=== PATIENT | male | born 1960 | race Caucasian/White ===

== ENCOUNTER 2024-10-01 15:18 | Observation (INO) | payer OTHER, SELFPAY ==
[2024-10-01] VITALS (16 sets, daily range): BP systolic 114–148; BP diastolic 58–97; PULSE 57–85; RESP 10–26; TEMP 36.1–36.7; O2SAT 97–100
--- NOTE | ~2024-10-01 | CT_ITS ---
EXAMINATION: CTA chest PE protocol DATE: 10/01/2024 17:07 INDICATION: CP, dyspnea, tachypnea, rule out PE TECHNIQUE: Computed tomography angiography (CTA) of the chest was performed with 100 mL Omnipaque-350 intravenous contrast timed to evaluate the pulmonary arteries. Coronal maximum intensity projection 3D-reconstructions were created by the technologist. The dose-length product (DLP) was 166.59 mGy-cm. Automated exposure control and iterative reconstruction technique were employed. COMPARISON: X-ray chest, same date. FINDINGS: Lung parenchyma and airways: Clear. Pleura: Unremarkable. Thoracic inlet, axillae and chest wall: Unremarkable. Thoracic aorta: No significant dilation. No dissection. Mediastinum: Normal. Heart and pericardium: Normal. Coronary artery calcifications: . Upper abdomen: No significant finding. Bones: No acute osseous finding. Pulmonary arteries: Study quality: Adequate. No pulmonary emboli detected. IMPRESSION: No CT evidence of acute pulmonary embolus. No acute process detected in the chest. Reviewed, dictated and finalized at location K. MILITARY ANALYST
--- NOTE | ~2024-10-01 | XR_ITS ---
EXAMINATION: XR chest 1V portable Exam Date/Time: 10/01/2024 15:53 BLACK BELT HISTORY: chest pain Comparison: None. RESULT: Lines, tubes, and devices: None. Lungs and pleura: Hyperinflation, otherwise clear. Cardiomediastinal silhouette: Stable. Other: No acute osseous or upper abdominal finding. IMPRESSION: No acute cardiopulmonary process. Reviewed, dictated and finalized at location K. K BELT
--- NOTE | 2024-10-01 15:29 | ECG_ITS ---
Test Date: 2024-10-01 15:33:12 Measurements Intervals [place] Rate: 67 P: 23 FL: 197 QRS: -47 QRSD: 89 T: 213 QT: 407 QTc: 432 Interpretive Statements SINUS RHYTHM LEFT AXIS DEVIATION ANTEROSEPTAL INFARCT, AGE INDETERMINATE ST-T WAVE ABNORMALITY IN DIFFUSE LEADS- CONSIDER ISCHEMIA BASELINE ARTIFACT- II, III, AVR, AVL, AVF ABNORMAL ECG No previous ECG available for comparison Electronically Signed On 10-01-2024 18:50:41 MAIL ROOM CLERK by Rl Mccullough D.O.
--- NOTE | 2024-10-01 15:47 | ED_ITS ---
HPI - Chest Pain General Chief Complaint: Chest Pain Stated Complaint: CP Time Seen by Provider: 10/01/24 15:47 Source: patient Mode of arrival: EMS Limitations: no limitations History of Present Illness HPI narrative: this is a 63-year-old male who presents to the ED via EMS from local shelter for chief complaint of chest pain and shortness of breath beginning 1 hour prior to arrival. Reports that he had twinge of chest pain that began last night but was short lived. States that the chest pain is currently in the central chest and does not radiate. Not necessarily associated with exertion or deep breathing. He does feel short of breath. States that he was just discharged from the hospital in [place] and told he had CHF. Reports that they started him on a CHF medication but cannot tell me his medications. Denies leg swelling, palpitations, back pain, syncope, nausea, vomiting, diarrhea, abdominal pain, fevers, chills, cough. Endorses smoking a pack per day since he was around age 11. Related Data Home Medications Medication Instructions Recorded Confirmed bumetanide 0.5 mg tablet 0.5 mg PO BID 10/01/24 10/01/24 empagliflozin 10 mg tablet 10 mg PO DAILY 10/01/24 10/01/24 (Jardiance) metoprolol tartrate 25 mg tablet 12.5 mg PO BID 10/01/24 10/01/24 sacubitril 24 mg-valsartan 26 mg 1 tablet PO BID 10/01/24 10/01/24 tablet (Entresto) sertraline 50 mg tablet 50 mg PO DAILY 10/01/24 10/01/24 spironolactone 25 mg tablet 12.5 mg PO DAILY 10/01/24 10/01/24 (Aldactone) Allergies Allergy/AdvReac Type Severity Reaction Status Date / Time codeine Allergy Unknown Verified 10/01/24 22:28 diclofenac [From Voltaren] Allergy Unknown Verified 10/01/24 22:28 ketorolac Allergy Unknown Verified 10/01/24 22:28 levofloxacin Allergy Unknown Verified 10/01/24 22:28 Czgzwej-LQT-CwB Reductase Allergy Unknown Verified 10/01/24 22:28 Inhibitor tramadol Allergy Unknown Verified 10/01/24 22:28 Review of Systems Review of Systems: All systems as dictated in HPI [facility] Family History Family History (Updated 10/01/24 @ 22:59 by Genna Gatica RN) Other Unknown family medical history Social History Social History Smoking status: Unknown if ever smoked Substance use type: marijuana Do You Feel Safe in your Home?: No Lack of Transportation: YES Lack of Food: Never True Current Housing: I Have Housing Concerned About Future Housing: No Difficulty Paying Gas/Electric Bills: No Difficulty Paying for Meds: No Currently Unemployed: No Education: Grade School Difficulty w/ Childcare or Family Care: No Spiritual care concerns: No Exam Narrative: GENERAL: Well-appearing, well-nourished, and in no acute distress. HEAD: Normocephalic, atraumatic. EYES: PERRLA and EOMI. ENT: Nares clear, no rhinorrhea or epistaxis. Mucous membranes moist. Oropharynx without tonsillar hypertrophy exudate or other lesions. NECK: Supple. No adenopathy or masses. CHEST: No respiratory distress. Clear to auscultation. No wheezes rales or rhonchi HEART: Regular rate and rhythm. No murmur heard. Normal peripheral pulses. ABDOMEN: Soft, nontender, nondistended, normal active bowel sounds. MSK: Normal range of motion. No edema. SKIN: Warm, dry, no rash. NEURO: Alert and oriented x4. No focal deficits. PSYCH: Normal mood and affect. Course Vital Signs Vital signs: Vital Signs Temperature 97.0 F L 10/01/24 15:26 Pulse Rate 70 10/01/24 15:26 Respiratory Rate 24 H 10/01/24 15:26 Blood Pressure 125/79 10/01/24 15:26 Pulse Oximetry 100 10/01/24 15:26 Oxygen Delivery Room Air 10/01/24 15:26 Temperature 97.0 F L 10/01/24 15:26 Pulse Rate 73 10/01/24 23:21 Respiratory Rate 10 L 10/01/24 22:00 Blood Pressure 145/97 H 10/01/24 22:00 Pulse Oximetry 98 10/01/24 22:00 Oxygen Delivery Room Air 10/01/24 20:03 MDM - Chest Pain MDM Narrative Medical decision making narrative: This is a 63-year-old male who presents to the ED for chief complaint of chest pain beginning just prior to arrival. Vitals show initial slightly tachypneic but otherwise normal. Physical exam is unremarkable. ECG is concerning for T- wave inversions throughout the inferior and lateral leads. There are deep Q- waves in the anterior leads. Lab work shows elevated BNP at 2470. Troponins at 0 and 3 hours are negative. BUN slightly elevated at 36. His is CBC unremarkable Chest x-ray and CTA chest are negative for any acute findings. Patient is still having chest pain on re-evaluation despite morphine. Tried dose of sublingual nitro with no effect. He is requesting to be admitted for chest pain evaluation. Discussed this plan with the hospitalist ELEVATOR REPAIRER HELPERShari who [facility] Ad[facility] in [facility] condition Differential Diagnosis Differential diagnosis: Likely fracture of rib, pneumothorax, stable angina, unstable angina pectoris, atypical chest pain, st elevation myocardial infarction, costochondritis and chest pain Lab Data 10/01/24 16:17 10/01/24 16:17 Labs: Lab Results 10/01/24 10/01/24 10/01/24 Range/Units 16:17 16:17 16:52 WBC 8.7 (4.5-10.0) K/mm3 RBC 5.33 (4.6-6.20) M/mm3 Hgb 16.2 (14.0-18.0) g/dL Hct 49.3 (42.0-52.0) % MCV 92.5 (80-100) fl MCH 30.4 (26-34) pg MCHC 32.9 (32-36) g/dl RDW 12.4 (11.5-14.5) % Plt Count 271 (150-375) k/mm3 MPV 10.7 H (7.4-10.4) fl Immature Gran % (Auto) 0.2 (0-0.5) % Neut % (Auto) 40.6 L (45.5-73.1) % Lymph % (Auto) 42.7 (18.3-44.2) % [place] % (Auto) 7.5 (2.6-8.5) % Eos % (Auto) 7.8 H (0-4.4) % Baso % (Auto) 1.2 (0.2-1.2) % Lymph # (Auto) 3.71 H (0.9-3.2) K/mm3 [place] # (Auto) 0.7 H (0.1-0.6) K/mm3 Eos # (Auto) 0.7 H (0-0.3) K/mm3 Baso # (Auto) 0.1 (0.0-0.1) K/mm3 Abs Immat Gran (auto) 0.02 (0.00-0.031) K/mm3 Absolute Neuts (auto) 3.5 (1.3-6.7) K/mm3 Absolute Nucleated RBC 0.000 (0.0-0.012) K/mm3 Nucleated RBC % 0.0 (0.0-0.2) % PT 12.7 (11.1-14.7) Seconds INR 0.9 APTT 26.7 (22.3-36.8) Seconds Sodium 136 L (137-145) mmol/L Potassium 4.8 (3.4-5.0) mmol/L Chloride 100 (98-107) mmol/L Carbon Dioxide 29 (22-30) mmol/L Anion Gap 7 (4-12) mmol/L BUN 36 H (9-20) mg/dL Creatinine 1.30 (0.7-1.3) mg/dL Estim Creat Clear Calc 34 ml/min Estimated GFR 56 L (59 - ) Glucose 85 (65-110) mg/dL Calcium 9.4 (8.4-10.2) mg/dL Total Bilirubin 0.3 (0.2-1.3) mg/dL AST 60 H (17-59) U/L ALT 68 H (6-50) U/L Alkaline Phosphatase 89 (38-126) U/L Troponin I < 0.012 Cancelled (0.000-0.034) ng/mL NT-Pro-B Natriuret Pep 2470 H (19.9-100) pg/mL Total Protein 8.0 (6.3-8.2) g/dL Albumin 4.3 (3.5-5.1) g/dL Lipase 102 (23-300) U/L Urine Color Yellow (Yellow) Urine Appearance Clear (Clear) Urine pH 6.5 (5.0-9.0) Ur Specific [place] 1.022 (1.001-1.035) Urine Protein Negative (Negative) mg/dL Urine Glucose (UA) Negative (Negative) mg/dL Urine Ketones Negative (Negative) mg/dL Ur Blood (Man) Negative (Negative) Urine Nitrate Negative (Negative) Urine Bilirubin Negative (Negative) Urine Urobilinogen 0.2 (<2.0) mg/dL Leukocyte Esterase Rfl Negative (Negative) YUMIKO/UL 10/01/24 Range/Units 19:13 WBC (4.5-10.0) K/mm3 RBC (4.6-6.20) M/mm3 Hgb (14.0-18.0) g/dL Hct (42.0-52.0) % MCV (80-100) fl MCH (26-34) pg MCHC (32-36) g/dl RDW (11.5-14.5) % Plt Count (150-375) k/mm3 MPV (7.4-10.4) fl Immature Gran % (Auto) (0-0.5) % Neut % (Auto) (45.5-73.1) % Lymph % (Auto) (18.3-44.2) % [place] % (Auto) (2.6-8.5) % Eos % (Auto) (0-4.4) % Baso % (Auto) (0.2-1.2) % Lymph # (Auto) (0.9-3.2) K/mm3 [place] # (Auto) (0.1-0.6) K/mm3 Eos # (Auto) (0-0.3) K/mm3 Baso # (Auto) (0.0-0.1) K/mm3 Abs Immat Gran (auto) (0.00-0.031) K/mm3 Absolute Neuts (auto) (1.3-6.7) K/mm3 Absolute Nucleated RBC (0.0-0.012) K/mm3 Nucleated RBC % (0.0-0.2) % PT (11.1-14.7) Seconds INR APTT (22.3-36.8) Seconds Sodium (137-145) mmol/L Potassium (3.4-5.0) mmol/L Chloride (98-107) mmol/L Carbon Dioxide (22-30) mmol/L Anion Gap (4-12) mmol/L BUN (9-20) mg/dL Creatinine (0.7-1.3) mg/dL Estim Creat Clear Calc ml/min Estimated GFR (59 - ) Glucose (65-110) mg/dL Calcium (8.4-10.2) mg/dL Total Bilirubin (0.2-1.3) mg/dL AST (17-59) U/L ALT (6-50) U/L Alkaline Phosphatase (38-126) U/L Troponin I < 0.012 (0.000-0.034) ng/mL NT-Pro-B Natriuret Pep (19.9-100) pg/mL Total Protein (6.3-8.2) g/dL Albumin (3.5-5.1) g/dL Lipase (23-300) U/L Urine Color (Yellow) Urine Appearance (Clear) Urine pH (5.0-9.0) Ur Specific [place] (1.001-1.035) Urine Protein (Negative) mg/dL Urine Glucose (UA) (Negative) mg/dL Urine Ketones (Negative) mg/dL Ur Blood (Man) (Negative) Urine Nitrate (Negative) Urine Bilirubin (Negative) Urine Urobilinogen (<2.0) mg/dL Leukocyte Esterase Rfl (Negative) YUMIKO/UL ECG Data EKG #1: ECG completion date: 10/01/24 ECG completion time: 15:58 Prior ECG tracings: not available for review Interpretation: sinus rhythm Rate 67 LAD Normal QRS Nonspecific ST and T-wave changes including T-wave inversions in the lateral and inferior leads Discharge Plan Discharge Clinical Impression: Chest pain Patient Disposition: Still a Patient Condition: Stable Quality HEART score for chest pain patients History: moderately suspicious ECG: non specific repolarization disturbance/LBTB/PM Age: > 45 and < 65 years Risk factors: 1 or 2 risk factors Troponin: < or = to 1x normal limit Heart score: 4
[2024-10-01] MEDS: MORPHINE SULFATE (*CRX) 4 MG/ML INJ IV PUSH (16:16)
[2024-10-01] MEDS: ASPIRIN 81 MG CHEWABLE TABLET 324 MG PO (16:16)
[2024-10-01] MEDS: ONDANSETRON INJ 4 MG/2 ML VIAL IV PUSH (16:16)
[2024-10-01 16:24] LABS: Basophils Absolute Auto 0.1 K/mm3 (0.0-0.1); Basophils Percent Auto 1.2 % (0.2-1.2); Eosinophils Absolute Auto 0.7 K/mm3 (0-0.3); Eosinophils Percent Auto 7.8 % (0-4.4); Hematocrit 49.3 % (42.0-52.0); Hemoglobin 16.2 g/dL (14.0-18.0); Immature Granulocyte Absolute 0.02 K/mm3 (0.00-0.031); Immature Granulocyte Percent A 0.2 % (0-0.5); Lymphocytes Absolute Auto 3.71 K/mm3 (0.9-3.2); Lymphocytes Percent Auto 42.7 % (18.3-44.2); Mean Corpuscular HGB Conc 32.9 g/dl (32-36); Mean Corpuscular Hemoglobin 30.4 pg (26-34); Mean Corpuscular Volume 92.5 fl (80-100); Mean Platelet Volume 10.7 fl (7.4-10.4); Monocytes Absolute Auto 0.7 K/mm3 (0.1-0.6); Monocytes Percent Auto 7.5 % (2.6-8.5); Neutrophils Absolute Auto 3.5 K/mm3 (1.3-6.7); Neutrophils Percent Auto 40.6 % (45.5-73.1); Platelet Count Result 271 k/mm3 (150-375); Red Blood Count 5.33 M/mm3 (4.6-6.20); Red Cell Distribution Width 12.4 % (11.5-14.5); White Blood Count 8.7 K/mm3 (4.5-10.0)
[2024-10-01 16:44] LABS: Alanine Aminotransferase 68 U/L (6-50); Albumin Level 4.3 g/dL (3.5-5.1); Alkaline Phosphatase 89 U/L (38-126); Anion Gap 7 mmol/L (4-12); Aspartate Amino Transferase 60 U/L (17-59); Bilirubin,Total 0.3 mg/dL (0.2-1.3); Blood Urea Nitrogen 36 mg/dL (9-20); Calcium 9.4 mg/dL (8.4-10.2); Carbon Dioxide 29 mmol/L (22-30); Chloride 100 mmol/L (98-107); Estimated CRCL calculation 34 ml/min; Estimated Glomerular Filt Rate 56; Glucose 85 mg/dL (65-110); Lipase 102 U/L (23-300); Potassium 4.8 mmol/L (3.4-5.0); Sodium 136 mmol/L (137-145)
[2024-10-01 16:51] LABS: NT Pro B Type Natriuretic Pept 2470 pg/mL (19.9-100)
[2024-10-01 17:11] LABS: INR 0.9; Prothrombin Time 12.7 Seconds (11.1-14.7)
[2024-10-01 17:12] LABS: Partial Thromboplastin Time 26.7 Seconds (22.3-36.8)
[2024-10-01 17:30] LABS: Add Urine Microscopic? NO; Appearance Urine Clear (Clear); Bilirubin Urine Negative (Negative); Blood Urine Negative (Negative); Color Urine Yellow (Yellow); Glucose Urine UA Negative (Negative); Ketones Urine Negative (Negative); Leukocyte Esterase Ur Negative LEU/UL (Negative); Nitrate Urine Negative (Negative); Protein Urine Negative (Negative); Specific Grav Ur 1.022 (1.001-1.035); Urobilinogen Urine 0.2 mg/dL (<2.0); pH Urine 6.5 (5.0-9.0)
[2024-10-01 17:43] LABS: Troponin I < 0.012 ng/mL (0.000-0.034)
[2024-10-01 19:59] LABS: Troponin I < 0.012 ng/mL (0.000-0.034)
[2024-10-01] MEDS: NITROGLYCERIN SL 0.4 MG TABLET SUBLINGUAL (20:19)
--- NOTE | 2024-10-01 23:03 | PC.NURSE ---
Patient unable to answer questions r/t health history; RN asked patient about PMH and patient stated I don't really know , I don't think so ; and maybe, I don't really know . Health history and medication list obtained from senior care records; Report provided to YRIS Larsen.
--- NOTE | 2024-10-01 23:17 | ADMGEN ---
This patient, James Olson, was admitted to Medical Room 257-01. Patient/family oriented to hospital policies and general routines including ID bracelet, bed and alarms, visiting hours, pain management, procedures, bathroom and other care routines, personal items, smoking policy, room service/diet, and visiting hours. Information on how to activate the Rapid Response Team has been discussed. Patient/Family are encouraged to report perceived risks to care and to ask questions if they do not understand what they are told or what they should do.
[2024-10-02] VITALS (10 sets, daily range): BP systolic 98–107; BP diastolic 56–74; PULSE 56–80; RESP 16–18; TEMP 36.4–36.5; O2SAT 95–97; BMI 17.4; BMI 17.3
[2024-10-02 00:37] LABS: Troponin I 0.013 ng/mL (0.000-0.034)
--- NOTE | 2024-10-02 01:35 | PM.IMHP ---
H&P: HPI History of Present Illness Date/Time: 10/02/24 01:35 Chief Complaint: Chest pain Narrative: 63-year-old male with a past medical history of learning disability, CHF, chronic kidney disease and depression who is a poor historian presented from [facility] [place] due to chest pain and shortness of breath for 1 hour. The patient had recently been hospitalized in [place] and for some reason was discharged to [facility] facility in our area. He states he does not know why he was discharged to a [facility] facility left alone a [facility]ci facility so far from home. He states that he has had several hospital stays recently and was told that he had heart failure. He reports intermittent dyspnea most notably dyspnea on exertion. He reports some chest tightness but not real chest pain. He denies a known history of COPD but he is a poor historian. He has smoked between 0.5 packs per day and 1.5 packs of cigarettes per day since he was a teenager. He has not had any lower extremity swelling, abdominal edema or swelling of his scrotum. He denies any palpitations. He denies any cough, congestion or wheezing. He reports that he is able to walk on his own and take care of himself. He does not want to go back to the jail. Patient was evaluated in the ER. His EKG demonstrated left bundle branch block but 2 sets of cardiac enzymes were negative. Patient initially had told ER that he is having chest pain. At the time my evaluation under more questioning the patient actually reported more of a chest tightness. And it seems as patient is actually having the tightness probably more so with activity but again patient is not the best historian. He reports that he was hospitalized at [facility]. He states that he has been our hospital for about 10 days. The patient states that his mother was an alcoholic and drink how Kelil Britton he she was with him. He states that he was in special education classes his whole life. He was not aware of the year. He states that he does not watch TV or keep track of a calendar. He initially stated that the president was rate again but corrected himself to Trump. Patient knows that he is in the hospital but is unaware of what town or the name of the jail that he was sent to. Review of Systems Review of Systems: 12 systems were reviewed with pertinent positives and negatives per HPI. Except as documented in the HPI, all other systems were reviewed and are negative. [facility] Past Medical History Medical History (Updated 10/02/24 @ 07:34 by Tsering Cervantes DO) CHF (congestive heart failure) Dyslipidemia Tobacco abuse disorder Family History Family History (Updated 10/02/24 @ 07:25 by Tsering Cervantes DO) Mother Alcoholism Social History Social History (Updated 10/02/24 @ 07:29 by Tsering Cervantes DO) Social History: He reports that he lived with his female friend until his recent hospitalization. He has smoked between 0.5 packs per day to 1.5 packs per day since he was 11 years old. He reports that he has cut down to 1-2 cigarettes a day over the last couple of years. He did drink heavily when he was in his early 20s but has not drink alcohol in numerous. He does smoke marijuana frequently. He used to deliver newspapers for a for 20 years. He states that he was for 45 years and got when he was 17. However if this was true than the patient's would of just recently but he tells me that his several years ago. He states that he has 2 daughters 1 of which was 38 in just of liver cancer recently. States he has another daughter who lives out of state but he has not talked to her in a few years. Code status: Full code Smoking packs per day: 1 Smoking cigarettes per day: 20.0 Years smoked: 50 Smoking pack-years: 50.00 Smoking status: Current every day smoker Additional smoking assessment comments: Patient started smoking around age of 11. He smoked up to 1 pack per day. Substance use type: marijuana Do You Feel Safe in your Home?: No Lack of Transportation: YES Lack of Food: Never True Current Housing: I Have Housing Concerned About Future Housing: No Difficulty Paying Gas/Electric Bills: No Difficulty Paying for Meds: No Currently Unemployed: No Education: Grade School Difficulty w/ Childcare or Family Care: No Spiritual care concerns: No Comments The patient reports that all of his siblings were 20+ years older than him. He still has 1 sister that he thinks is still alive but he is not in contact with her. Meds Home Medications and Allergies Home Medications Medication Instructions Recorded Confirmed Type bumetanide 0.5 mg tablet 0.5 mg PO BID 11/17/24 11/17/24 History empagliflozin 10 mg tablet 10 mg PO DAILY 10/01/24 10/01/24 History (Jardiance) metoprolol tartrate 25 mg tablet 12.5 mg PO BID 10/01/24 10/01/24 History sacubitril 24 mg-valsartan 26 mg 1 tablet PO BID 10/01/24 10/01/24 History tablet (Entresto) sertraline 50 mg tablet 50 mg PO DAILY 10/01/24 10/01/24 History spironolactone 25 mg tablet 12.5 mg PO DAILY 10/01/24 10/01/24 History (Aldactone) Allergies Allergy/AdvReac Type Severity Reaction Status Date / Time codeine Allergy Unknown Verified 10/01/24 22:28 diclofenac [From Voltaren] Allergy Unknown Verified 10/01/24 22:28 ketorolac Allergy Unknown Verified 10/01/24 22:28 levofloxacin Allergy Unknown Verified 10/01/24 22:28 Vzfmzvi-ZUA-AeD Reductase Allergy Unknown Verified 10/01/24 22:28 Inhibitor tramadol Allergy Unknown Verified 10/01/24 22:28 Vital Signs Vital Signs - 24 hr 10/01/24 15:26 10/01/24 15:26 10/01/24 15:27 Temperature 97.0 F L Pulse Rate 70 72 Respiratory Rate 24 H 17 Blood Pressure 125/79 125/79 Pulse Oximetry 100 100 100 Oxygen Delivery Room Air Room Air 10/01/24 16:46 10/01/24 19:00 10/01/24 19:45 Temperature Pulse Rate 76 70 76 Respiratory Rate 17 18 17 Blood Pressure 118/58 L Pulse Oximetry 100 97 99 Oxygen Delivery 10/01/24 20:03 10/01/24 20:03 10/01/24 20:03 Temperature Pulse Rate 65 57 L Respiratory Rate 12 Blood Pressure 122/69 Pulse Oximetry 100 100 Oxygen Delivery Room Air 10/01/24 20:19 10/01/24 20:23 10/01/24 21:00 Temperature Pulse Rate 63 69 72 Respiratory Rate 19 13 16 Blood Pressure 123/75 114/68 147/97 H Pulse Oximetry 99 99 100 Oxygen Delivery 10/01/24 21:15 10/01/24 21:30 10/01/24 21:46 Temperature Pulse Rate 71 64 63 Respiratory Rate 26 H 18 16 Blood Pressure 141/88 H 148/84 H 126/81 Pulse Oximetry 99 97 100 Oxygen Delivery 10/01/24 22:00 10/01/24 23:21 10/01/24 23:14 Temperature 98.1 F Pulse Rate 80 73 85 Respiratory Rate 10 L 16 Blood Pressure 145/97 H 138/69 Pulse Oximetry 98 100 Oxygen Delivery 10/01/24 23:15 10/02/24 00:00 Temperature Pulse Rate 73 80 Respiratory Rate 16 Blood Pressure Pulse Oximetry 100 Oxygen Delivery Room Air Exam Narrative: Weight 48.9 kg BMI 17.4 Const: Other: Thin body habitus, appears older than stated age, no acute distress, disheveled HENMT: Other: Head is normocephalic atraumatic, mucous membranes are tacky, edentulous in upper and lower jaw, patient does not have dentures Eyes: Other: Cataracts noted bilaterally, no conjunctival pallor, no scleral icterus Neck: Other: No JVD, supple Resp: Other: Decreased breath sounds bilaterally, no increased work of breathing Cardio: Other: Regular rate, regular rhythm, 2+ bilateral radial pedal pulses GI: Other: Soft, nontender, nondistended, concave andreia normoactive bowel sounds Skin: Other: The patient has numerous tattoos that appear like they have been done with a straight needle/amateur, he has significant redundant skin, no jaundice, no pallor Neuro: Other: Alert oriented to person, the fact that he is in the hospital, month and name of the president. . 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, no cyanosis, no mottling Psych: Other: Appropriate mood affect pleasant and cooperative, difficult to assess judgment and insight H&P: Results Labs Labs: Laboratory Tests 10/01/24 16:17 10/01/24 16:17 10/01/24 10/01/24 10/01/24 16:17 16:17 16:52 WBC 8.7 RBC 5.33 Hgb 16.2 Hct 49.3 MCV 92.5 MCH 30.4 MCHC 32.9 RDW 12.4 Plt Count 271 MPV 10.7 H Immature Gran % (Auto) 0.2 Neut % (Auto) 40.6 L Lymph % (Auto) 42.7 [place] % (Auto) 7.5 Eos % (Auto) 7.8 H Baso % (Auto) 1.2 Lymph # (Auto) 3.71 H [place] # (Auto) 0.7 H Eos # (Auto) 0.7 H Baso # (Auto) 0.1 Abs Immat Gran (auto) 0.02 Absolute Neuts (auto) 3.5 Absolute Nucleated RBC 0.000 Nucleated RBC % 0.0 PT 12.7 INR 0.9 APTT 26.7 Sodium 136 L Potassium 4.8 Chloride 100 Carbon Dioxide 29 Anion Gap 7 BUN 36 H Creatinine 1.30 Estim Creat Clear Calc 34 Estimated GFR 56 L Glucose 85 Calcium 9.4 Total Bilirubin 0.3 AST 60 H ALT 68 H Alkaline Phosphatase 89 Troponin I < 0.012 Cancelled NT-Pro-B Natriuret Pep 2470 H Total Protein 8.0 Albumin 4.3 Lipase 102 Urine Color Yellow Urine Appearance Clear Urine pH 6.5 Ur Specific [place] 1.022 Urine Protein Negative Urine Glucose (UA) Negative Urine Ketones Negative Ur Blood (Man) Negative Urine Nitrate Negative Urine Bilirubin Negative Urine Urobilinogen 0.2 Leukocyte Esterase Rfl Negative 10/01/24 10/02/24 19:13 00:03 WBC RBC Hgb Hct MCV MCH MCHC RDW Plt Count MPV Immature Gran % (Auto) Neut % (Auto) Lymph % (Auto) [place] % (Auto) Eos % (Auto) Baso % (Auto) Lymph # (Auto) [place] # (Auto) Eos # (Auto) Baso # (Auto) Abs Immat Gran (auto) Absolute Neuts (auto) Absolute Nucleated RBC Nucleated RBC % PT INR APTT Sodium Potassium Chloride Carbon Dioxide Anion Gap BUN Creatinine Estim Creat Clear Calc Estimated GFR Glucose Calcium Total Bilirubin AST ALT Alkaline Phosphatase Troponin I < 0.012 0.013 NT-Pro-B Natriuret Pep Total Protein Albumin Lipase Urine Color Urine Appearance Urine pH Ur Specific [place] Urine Protein Urine Glucose (UA) Urine Ketones Ur Blood (Man) Urine Nitrate Urine Bilirubin Urine Urobilinogen Leukocyte Esterase Rfl Impressions Chest X-Ray 10/01/24 16:02 (personally reviewed and interpreted. Agree with radiologic interpretation. IMPRESSION: No acute cardiopulmonary process. Chest CTA 10/01/24 17:11 IMPRESSION: No CT evidence of acute pulmonary embolus. No acute process detected in the chest. EKG: Personally reviewed and interpreted. Cardiology interpretation below Measurements Intervals [place] Rate: 67 P: 23 NV: 197 QRS: -47 QRSD: 89 T: 213 QT: 407 QTc: 432 Interpretive Statements SINUS RHYTHM LEFT AXIS DEVIATION ANTEROSEPTAL INFARCT, AGE INDETERMINATE ST-T WAVE ABNORMALITY IN DIFFUSE LEADS- CONSIDER ISCHEMIA BASELINE ARTIFACT- II, III, AVR, AVL, AVF ABNORMAL ECG No previous ECG available for comparison Assessment and Plan Assessment and plan (1) Chest pain: Qualifiers: Chest pain type: unspecified Qualified Code(s): R07.9 - Chest pain, unspecified Code(s): R07.9 - Chest pain, unspecified Status: Acute (2) CHF (congestive heart failure): Qualifiers: Heart failure type: right-sided Heart failure chronicity: chronic Qualified Code(s): I50.812 - Chronic right heart failure Code(s): I50.9 - Heart failure, unspecified Status: Acute Assessment and Plan: Per jail paperwork patient has right-sided heart failure (3) Tobacco abuse disorder: Code(s): Z72.0 - Tobacco use Status: Acute Plan Chest pain due to cardiac ischemia ruled out with 3 sets of troponins. Patient evidently had significant evaluation for CHF at [facility]. Patient's chest pain does not seem to be consistent with cardiac ischemia. Infected chest pain is more of a tightness ice suspected is due to patient's underlying CHF and/or COPD. If concern persists a for acute ischemia could consider stress test. But I would like to obtain records from outside hospital to evaluate what cardiac evaluation has been performed previously. CTA negative for PE or acute processes of the chest that could cause pain. Patient has history of CHF. Will change diet to 2 g low-sodium. Will continue Jardiance, metoprolol and Entresto as well as spironolactone. Will monitor strict I&O's and daily weights. Chest x-ray does appear to be somewhat hyperinflated. ? If patient may have history of underlying COPD as well given his significant smoking history although he does not have evidence of acute COPD exacerbation.. But appears otherwise euvolemic. Will monitor strict I&O's and daily weights. Patient is adamant that he is able to take care of himself at home. Will request PT and OT evaluation to assess discharge planning recommendations. Will also obtain records from the outside hospital to see if there is a specific reason mention as to why patient could not return to his prior residence. Patient has been admitted as observation status. Quality VTE Prophylaxis VTE prophylaxis: pharmacologic ordered (Lovenox 40 mg subQ daily) Hospitalist MIPS Advance Care Plan I have confirmed that the patient's Advanced Care Plan is present, code status is documented, or surrogate decision maker is listed in patient medical record.: Yes Medication Reconciliation I have utilized all available resources to obtain, update and review the patients current medications (includes all prescriptions, OTC, herbals, cannabis, and nutritional supplements).: Yes
[2024-10-02 08:02] LABS: Basophils Absolute Auto 0.1 K/mm3 (0.0-0.1); Basophils Percent Auto 0.9 % (0.2-1.2); Eosinophils Absolute Auto 0.7 K/mm3 (0-0.3); Hematocrit 48.1 % (42.0-52.0); Hemoglobin 15.9 g/dL (14.0-18.0); Immature Granulocyte Absolute 0.02 K/mm3 (0.00-0.031); Immature Granulocyte Percent A 0.2 % (0-0.5); Lymphocytes Absolute Auto 3.12 K/mm3 (0.9-3.2); Lymphocytes Percent Auto 35.3 % (18.3-44.2); Mean Corpuscular HGB Conc 33.1 g/dl (32-36); Mean Corpuscular Hemoglobin 30.1 pg (26-34); Mean Corpuscular Volume 91.1 fl (80-100); Mean Platelet Volume 10.5 fl (7.4-10.4); Monocytes Absolute Auto 0.7 K/mm3 (0.1-0.6); Monocytes Percent Auto 8.4 % (2.6-8.5); Neutrophils Absolute Auto 4.2 K/mm3 (1.3-6.7); Neutrophils Percent Auto 47.2 % (45.5-73.1); Platelet Count Result 244 k/mm3 (150-375); Red Blood Count 5.28 M/mm3 (4.6-6.20); Red Cell Distribution Width 12.2 % (11.5-14.5); White Blood Count 8.9 K/mm3 (4.5-10.0)
--- NOTE | 2024-10-02 08:20 | PM.IMPN ---
Progress Note: A&P Assessment and Plan (1) Chest pain: Qualifiers: Chest pain type: unspecified Qualified Code(s): R07.9 - Chest pain, unspecified Code(s): R07.9 - Chest pain, unspecified Status: Acute Assessment and Plan: Patient evidently had significant evaluation for CHF at [facility]. Patient's chest pain does not seem to be consistent with cardiac ischemia. Infected chest pain is more of a tightness ice suspected is due to patient's underlying CHF and/or COPD. Troponins negative x3 EKG: Sinus rhythm rate 67 with L bundle branch block Chest XR: No acute cardiopulmonary process. Chest CTA: No CT evidence of acute pulmonary embolus.No acute process detected in the chest. Request of outside records If concern persists for acute ischemia could consider stress test. Monitor vital signs, I&Os, chest pain, shortness of breath and patient is a fall risk Monitor PTT, serial troponins, Serum electrolytes, and cbc Monitor for bloody bowel movements,chest pain,SOB or dizziness/lightheadedness (2) CHF (congestive heart failure): Qualifiers: Heart failure chronicity: chronic Heart failure type: right-sided Qualified Code(s): I50.812 - Chronic right heart failure Code(s): I50.9 - Heart failure, unspecified Status: Acute Assessment and Plan: Patient has history of CHF. Will change diet to 2 g low-sodium. Will continue Jardiance, metoprolol and Entresto as well as spironolactone. Will monitor strict I&O's and daily weights. Chest x-ray does appear to be somewhat hyperinflated. ? If patient may have history of underlying COPD as well given his significant smoking history although he does not have evidence of acute COPD exacerbation.. But appears otherwise euvolemic. Will monitor strict I&O's and daily weights. - Symptoms: Chest pain, shortness of breath - Current medications: Bumex, Jardiance, Entresto - Supportive treatment - BNP: 2470 - EKG: Sinus rhythm rate 67 with L bundle branch block - Chest XR: No acute cardiopulmonary process. - Chest CTA: No CT evidence of acute pulmonary embolus.No acute process detected in the chest. - Request of records sent - Monitor vital signs, I&Os, BUN/creatinine, daily weights, neuro status and patient is a fall risk - Monitor serum electrolytes, Keep serum Potassium>4 and serum Magnesium>2 and CBC (3) Tobacco abuse disorder: Code(s): Z72.0 - Tobacco use Status: Acute Assessment and Plan: He has smoked between 0.5 packs per day to 1.5 packs per day since he was 11 years old. He reports that he has cut down to 1-2 cigarettes a day over the last couple of years. - Encouraged smoking cessation Time Spent With Patient Time with patient: 25 - 35 minutes Subjective Date/time seen: 10/02/24 08:20 Interval history: 63-year-old male with a past medical history of learning disability, CHF, chronic kidney disease and depression who is a poor historian presented from [facility] due to chest pain and shortness of breath for 1 hour. Patient is pleasant sitting up in his chair. He has no complaints denying chest pain, shortness of breath, nausea/vomiting and abdominal pain. He is a poor historian. Will put in a request of records for [facility]. Review of Systems Review of Systems: All systems reviewed & are unremarkable except as noted in HPI and below Exam Narrative: AF HR 56 RR 18 SpO2 95 BP 107/74 General: frail, male in no acute respiratory distress who is nontoxic appearing, lying semi recumbent in bed. HEENT: Normocephalic. Atraumatic. Extraocular movement intact. Sclera clear and anicteric. No facial asymmetry. Chest: Lungs are clear to auscultation bilaterally. No wheezes or crackles. CV: Heart was regular rate and rhythm. S1/S2. No murmurs, gallops, or rubs. Abd: Abdomen was soft. Nontender. Nondistended. Positive bowel sounds. No organomegaly or masses. Ext: No clubbing, cyanosis, or edema. 2+ DP pulses bilaterally. Neuro: Patient is alert and oriented x3 (self, hospital and month). Unsure of the year however he states he does not keep track of the year. Strength is 5/5 in both upper and lower extremities. Cranial nerves 2-12 are intact. Speech is clear. Objective Data Vital Signs Vital Signs: Vital Signs - 24 hr 10/01/24 15:26 10/01/24 15:26 10/01/24 15:27 Temperature 97.0 F L Pulse Rate 70 72 Respiratory Rate 24 H 17 Blood Pressure 125/79 125/79 Pulse Oximetry 100 100 100 Oxygen Delivery Room Air Room Air 10/01/24 16:46 10/01/24 19:00 10/01/24 19:45 Temperature Pulse Rate 76 70 76 Respiratory Rate 17 18 17 Blood Pressure 118/58 L Pulse Oximetry 100 97 99 Oxygen Delivery 10/01/24 20:03 10/01/24 20:03 10/01/24 20:03 Temperature Pulse Rate 65 57 L Respiratory Rate 12 Blood Pressure 122/69 Pulse Oximetry 100 100 Oxygen Delivery Room Air 10/01/24 20:19 10/01/24 20:23 10/01/24 21:00 Temperature Pulse Rate 63 69 72 Respiratory Rate 19 13 16 Blood Pressure 123/75 114/68 147/97 H Pulse Oximetry 99 99 100 Oxygen Delivery 10/01/24 21:15 10/01/24 21:30 10/01/24 21:46 Temperature Pulse Rate 71 64 63 Respiratory Rate 26 H 18 16 Blood Pressure 141/88 H 148/84 H 126/81 Pulse Oximetry 99 97 100 Oxygen Delivery 10/01/24 22:00 10/01/24 23:21 10/01/24 23:14 Temperature 98.1 F Pulse Rate 80 73 85 Respiratory Rate 10 L 16 Blood Pressure 145/97 H 138/69 Pulse Oximetry 98 100 Oxygen Delivery 10/01/24 23:15 10/02/24 00:00 10/02/24 04:01 Temperature Pulse Rate 73 80 74 Respiratory Rate 16 Blood Pressure Pulse Oximetry 100 Oxygen Delivery Room Air 10/02/24 05:48 Temperature 97.7 F Pulse Rate 56 L Respiratory Rate 18 Blood Pressure 107/74 Pulse Oximetry 95 Oxygen Delivery Intake/Output Intake/Output: Intake & Output 09/29/24 09/30/24 10/01/24 10/02/24 23:59 23:59 23:59 23:59 Intake Total 680 Output Total 200 Balance -200 680 Meds/Results Medications: Active Medications Generic Name Dose Route Start Last Admin Trade Name Freq PRN Reason Stop Dose Admin Bumetanide 0.5 mg 10/02/24 09:00 Bumetanide 0.5 Mg Tablet PO BID [facility] Empagliflozin 10 mg 10/02/24 09:00 Empagliflozin 10 Mg Tablet PO DAILY [facility] Metoprolol Tartrate 12.5 mg 10/02/24 09:00 Metoprolol Tartrate 12.5 Mg Tablet PO Q12HR [facility] Morphine Sulfate 4 mg 10/01/24 22:09 Morphine Sulfate (*Crx) 4 Mg/Ml Inj IV PUSH Q4H PRN Pain Rated 7-10 Ondansetron HCl 4 mg 10/01/24 22:09 Ondansetron Inj 4 Mg/2 Ml Vial IV PUSH Q4H PRN Nausea Sacubitril/Valsartan 1 tab 10/02/24 09:00 Sacubitril/Valsartan 24-26 Mg Tablet PO Q12HR [facility] Sertraline HCl 50 mg 10/02/24 09:00 Sertraline Hcl 50 Mg Tablet PO DAILY [facility] Spironolactone 12.5 mg 10/02/24 09:00 Spironolactone 12.5 Mg Tablet PO DAILY [facility] Radiology Results: ITS Impressions Chest X-Ray 10/01/24 16:02 IMPRESSION: No acute cardiopulmonary process. Chest CTA 10/01/24 17:11 IMPRESSION: No CT evidence of acute pulmonary embolus. No acute process detected in the chest. Labs Labs: Laboratory Results - last 24 hr 10/01/24 10/01/24 10/01/24 16:17 16:17 16:52 WBC 8.7 RBC 5.33 Hgb 16.2 Hct 49.3 MCV 92.5 MCH 30.4 MCHC 32.9 RDW 12.4 Plt Count 271 MPV 10.7 H Immature Gran % (Auto) 0.2 Neut % (Auto) 40.6 L Lymph % (Auto) 42.7 [place] % (Auto) 7.5 Eos % (Auto) 7.8 H Baso % (Auto) 1.2 Lymph # (Auto) 3.71 H [place] # (Auto) 0.7 H Eos # (Auto) 0.7 H Baso # (Auto) 0.1 Abs Immat Gran (auto) 0.02 Absolute Neuts (auto) 3.5 Absolute Nucleated RBC 0.000 Nucleated RBC % 0.0 PT 12.7 INR 0.9 APTT 26.7 Sodium 136 L Potassium 4.8 Chloride 100 Carbon Dioxide 29 Anion Gap 7 BUN 36 H Creatinine 1.30 Estim Creat Clear Calc 34 Estimated GFR 56 L Glucose 85 Calcium 9.4 Total Bilirubin 0.3 AST 60 H ALT 68 H Alkaline Phosphatase 89 Troponin I < 0.012 Cancelled NT-Pro-B Natriuret Pep 2470 H Total Protein 8.0 Albumin 4.3 Lipase 102 Urine Color Yellow Urine Appearance Clear Urine pH 6.5 Ur Specific [place] 1.022 Urine Protein Negative Urine Glucose (UA) Negative Urine Ketones Negative Ur Blood (Man) Negative Urine Nitrate Negative Urine Bilirubin Negative Urine Urobilinogen 0.2 Leukocyte Esterase Rfl Negative 10/01/24 10/02/24 10/02/24 19:13 00:03 07:45 WBC 8.9 RBC 5.28 Hgb 15.9 Hct 48.1 MCV 91.1 MCH 30.1 MCHC 33.1 RDW 12.2 Plt Count 244 MPV 10.5 H Immature Gran % (Auto) 0.2 Neut % (Auto) 47.2 Lymph % (Auto) 35.3 [place] % (Auto) 8.4 Eos % (Auto) 8.0 H Baso % (Auto) 0.9 Lymph # (Auto) 3.12 [place] # (Auto) 0.7 H Eos # (Auto) 0.7 H Baso # (Auto) 0.1 Abs Immat Gran (auto) 0.02 Absolute Neuts (auto) 4.2 Absolute Nucleated RBC 0.000 Nucleated RBC % 0.0 PT INR APTT Sodium Potassium Chloride Carbon Dioxide Anion Gap BUN Creatinine Estim Creat Clear Calc Estimated GFR Glucose Calcium Total Bilirubin AST ALT Alkaline Phosphatase Troponin I < 0.012 0.013 NT-Pro-B Natriuret Pep Total Protein Albumin Lipase Urine Color Urine Appearance Urine pH Ur Specific [place] Urine Protein Urine Glucose (UA) Urine Ketones Ur Blood (Man) Urine Nitrate Urine Bilirubin Urine Urobilinogen Leukocyte Esterase Rfl Quality VTE Prophylaxis VTE prophylaxis: pharmacologic ordered (Lovenox 40 mg subQ daily)
[2024-10-02 08:21] LABS: Alanine Aminotransferase 61 U/L (6-50); Albumin Level 3.9 g/dL (3.5-5.1); Alkaline Phosphatase 75 U/L (38-126); Anion Gap 4 mmol/L (4-12); Aspartate Amino Transferase 50 U/L (17-59); Bilirubin,Total 0.4 mg/dL (0.2-1.3); Blood Urea Nitrogen 32 mg/dL (9-20); Calcium 9.1 mg/dL (8.4-10.2); Carbon Dioxide 30 mmol/L (22-30); Chloride 100 mmol/L (98-107); Estimated CRCL calculation 43 ml/min; Estimated Glomerular Filt Rate > 60; Glucose 81 mg/dL (65-110); Potassium 4.4 mmol/L (3.4-5.0); Sodium 134 mmol/L (137-145)
[2024-10-02] MEDS: SACUBITRIL/VALSARTAN 24-26 MG TABLET 1 TAB PO ×2 (08:28→19:50)
[2024-10-02] MEDS: METOPROLOL TARTRATE 12.5 MG TABLET PO ×2 (08:28→19:51)
[2024-10-02] MEDS: SERTRALINE HCL 50 MG TABLET PO (08:28)
[2024-10-02] MEDS: BUMETANIDE 0.5 MG TABLET PO ×2 (08:28→16:57)
[2024-10-02] MEDS: EMPAGLIFLOZIN 10 MG TABLET PO (08:28)
[2024-10-02] MEDS: SPIRONOLACTONE 12.5 MG TABLET PO (08:28)
--- NOTE | 2024-10-02 14:21 | PC.NURSE ---
Request for medical records from [facility] faxed at 14:20 on 10/02/2024.
[2024-10-02] MEDS: MELATONIN 5 MG TABLET PO (19:50)
[2024-10-03] VITALS: PULSE 63
--- NOTE | 2024-10-03 01:49 | ECG_ITS ---
Test Date: 2024-10-03 02:06:45 Measurements Intervals [place] Rate: 52 P: 25 [place]: 194 QRS: -34 QRSD: 104 T: 223 QT: 471 QTc: 440 Interpretive Statements SINUS BRADYCARDIA LEFT AXIS DEVIATION BORDERLINE AV CONDUCTION DELAY CANNOT R/O SEPTAL INFARCT, AGE INDETERMINATE ST-T WAVE ABNORMALITY IN DIFFUSE LEADS- CONSIDER ISCHEMIA BASELINE ARTIFACT- II, III, AVR, AVL, AVF ABNORMAL ECG Compared to ECG 10/01/2024 15:33:12 HEART RATE HAS DECREASED Electronically Signed On 10-03-2024 06:02:01 BALANCE RECESSER by Rl Mccullough D.O.
[2024-10-03 01:50] VITALS: BP 100/65; PULSE 56; RESP 18; TEMP 36.4; O2SAT 98
[2024-10-03] MEDS: MORPHINE SULFATE (*CRX) 4 MG/ML INJ IV PUSH (01:57)
[2024-10-03 04:00] VITALS: PULSE 69
[2024-10-03 04:51] VITALS: BP 106/56; PULSE 97; RESP 16; TEMP 36.3; O2SAT 96
[2024-10-03 05:31] LABS: Basophils Absolute Auto 0.1 K/mm3 (0.0-0.1); Eosinophils Absolute Auto 0.6 K/mm3 (0-0.3); Eosinophils Percent Auto 6.9 % (0-4.4); Hematocrit 53.6 % (42.0-52.0); Hemoglobin 17.9 g/dL (14.0-18.0); Immature Granulocyte Absolute 0.01 K/mm3 (0.00-0.031); Immature Granulocyte Percent A 0.1 % (0-0.5); Lymphocytes Absolute Auto 3.41 K/mm3 (0.9-3.2); Lymphocytes Percent Auto 39.3 % (18.3-44.2); Mean Corpuscular HGB Conc 33.4 g/dl (32-36); Mean Corpuscular Hemoglobin 30.6 pg (26-34); Mean Corpuscular Volume 91.6 fl (80-100); Mean Platelet Volume 10.6 fl (7.4-10.4); Monocytes Absolute Auto 0.7 K/mm3 (0.1-0.6); Monocytes Percent Auto 8.4 % (2.6-8.5); Neutrophils Absolute Auto 3.8 K/mm3 (1.3-6.7); Neutrophils Percent Auto 44.3 % (45.5-73.1); Platelet Count Result 251 k/mm3 (150-375); Red Blood Count 5.85 M/mm3 (4.6-6.20); Red Cell Distribution Width 12.2 % (11.5-14.5); White Blood Count 8.7 K/mm3 (4.5-10.0)
[2024-10-03 05:47] LABS: Alanine Aminotransferase 75 U/L (6-50); Albumin Level 4.4 g/dL (3.5-5.1); Alkaline Phosphatase 86 U/L (38-126); Anion Gap 9 mmol/L (4-12); Aspartate Amino Transferase 60 U/L (17-59); Bilirubin,Total 0.3 mg/dL (0.2-1.3); Blood Urea Nitrogen 39 mg/dL (9-20); Calcium 9.3 mg/dL (8.4-10.2); Carbon Dioxide 27 mmol/L (22-30); Chloride 98 mmol/L (98-107); Estimated CRCL calculation 35 ml/min; Estimated Glomerular Filt Rate 52; Glucose 105 mg/dL (65-110); Potassium 4.6 mmol/L (3.4-5.0); Sodium 134 mmol/L (137-145)
[2024-10-03] MEDS: SACUBITRIL/VALSARTAN 24-26 MG TABLET 1 TAB PO (08:24)
[2024-10-03] MEDS: BUMETANIDE 0.5 MG TABLET PO (08:24)
[2024-10-03] MEDS: SPIRONOLACTONE 12.5 MG TABLET PO (08:24)
[2024-10-03] MEDS: SERTRALINE HCL 50 MG TABLET PO (08:24)
[2024-10-03 08:25] VITALS: PULSE 60; PULSE 63; O2SAT 96
[2024-10-03] MEDS: METOPROLOL TARTRATE 12.5 MG TABLET PO (08:25)
[2024-10-03] MEDS: EMPAGLIFLOZIN 10 MG TABLET PO (08:25)
[2024-10-03] MEDS: ENOXAPARIN 40 MG/0.4 ML SYRINGE SUB-Q (08:25)
[2024-10-03 08:26] VITALS: BP 105/62
--- NOTE | 2024-10-03 10:31 | P.DS_ITS ---
DS: Admitting Diagnosis Discharge Date 10/03/2024 Admitting Diagnosis Chest pain congestive heart failure tobacco use disorder DS: Discharge Diagnosis Discharge Diagnosis (1) Chest pain: Qualifiers: Chest pain type: unspecified Qualified Code(s): R07.9 - Chest pain, unspecified Code(s): R07.9 - Chest pain, unspecified Status: Acute (2) CHF (congestive heart failure): Qualifiers: Heart failure chronicity: chronic Heart failure type: right-sided Qualified Code(s): I50.812 - Chronic right heart failure Code(s): I50.9 - Heart failure, unspecified Status: Acute (3) Tobacco abuse disorder: Code(s): Z72.0 - Tobacco use Status: Acute DS: Summary Hospital Course Reason for hospitalization: Chest pain congestive heart failure tobacco use disorder Hospital Course: 63-year-old male with a past medical history of learning disability, CHF, chronic kidney disease and depression who is a poor historian presented from [facility] due to chest pain and shortness of breath for 1 hour. EKG on admission showed sinus rhythm with LBBB. Troponins negative. BNP slightly elevated at 2470. Chest XR showed no acute cardiopulmonary process. Chest CTA showed no CT evidence of acute pulmonary embolus.No acute process detected in the chest. Euvolemic on exam. Patient's chest pain does not seem to be consistent with cardiac ischemia. Request of records was made. [facility] records received. According to there notes this patient has a PMH of HFrEF, cardiomyopathy, CKD, tobacco and marijuana use, anxiety/depression and homelessness. Patient was recently admitted to [facility] for a heart failure exacerbation for which cardiology was consulted and he was placed on GDMT. EKG this admission appears unchanged compared to the one on 09/17. No echo results were sent. All of patients symptoms resolved during his admission. At time of discharge he denied chest pain, shortness of breath, palpitations, nausea/vomiting, abdominal pain, dizziness and lightheadedness. Patient discharged [facility] to [facility] in stable condition. He is to follow up with his PCP in 1 week. Status at Discharge Functional status at discharge: independent ambulation Time Spent with Patient Time attestation: Total time spent providing and/or coordinating discharge services: Time spent: Greater than 30 minutes Exam Narrative: AF HR 63 RR 16 SpO2 96 BP 106/56 General: frail, male in no acute respiratory distress who is nontoxic appearing, lying semi recumbent in bed. HEENT: Normocephalic. Atraumatic. Extraocular movement intact. Sclera clear and anicteric. No facial asymmetry. Chest: Lungs are clear to auscultation bilaterally. No wheezes or crackles. CV: Heart was regular rate and rhythm. S1/S2. No murmurs, gallops, or rubs. Abd: Abdomen was soft. Nontender. Nondistended. Positive bowel sounds. No organomegaly or masses. Ext: No clubbing, cyanosis, or edema. 2+ DP pulses bilaterally. Neuro: Patient is alert and oriented x3 (self, hospital and month). Unsure of the year however he states he does not keep track of the year. Strength is 5/5 in both upper and lower extremities. Cranial nerves 2-12 are intact. Speech is clear. DS: Data Data Completed and Pending Completed studies during hospitalization: chest xr chest cta Labs on day of discharge: Labs from last 24 hours 10/03/24 05:03 WBC 8.7 RBC 5.85 Hgb 17.9 Hct 53.6 H MCV 91.6 MCH 30.6 MCHC 33.4 RDW 12.2 Plt Count 251 MPV 10.6 H Immature Gran % (Auto) 0.1 Neut % (Auto) 44.3 L Lymph % (Auto) 39.3 Posey % (Auto) 8.4 Eos % (Auto) 6.9 H Baso % (Auto) 1.0 Lymph # (Auto) 3.41 H Posey # (Auto) 0.7 H Eos # (Auto) 0.6 H Baso # (Auto) 0.1 Abs Immat Gran (auto) 0.01 Absolute Neuts (auto) 3.8 Absolute Nucleated RBC 0.000 Nucleated RBC % 0.0 Sodium 134 L Potassium 4.6 Chloride 98 Carbon Dioxide 27 Anion Gap 9 BUN 39 H Creatinine 1.40 H Estim Creat Clear Calc 35 Estimated GFR 52 L Glucose 105 Calcium 9.3 Total Bilirubin 0.3 AST 60 H ALT 75 H Alkaline Phosphatase 86 Total Protein 8.0 Albumin 4.4 Discharge Plan Discharge Attending physician on discharge: Pamella Camacho Discharging Clinician: Martina Hearn Anticipated Discharge Date/Time: 10/03/24 10:29 Patient Disposition: NH Group Home/Asst Living Activity: as tolerated Diet: as tolerated Discharge Instructions: Discharge disposition: Patient was admitted to the hospital for chest pain and shortness a breath During admission patients symptoms entirely resolved Troponins were negative EKG was unchanged from prior imaging at [facility] in [place] Chest XR was unremarkable Patient has a history of heart failure with reduced ejection fraction Continue all of his medications as prescribed for guideline directed medical therapy Maintain a cardiac diet, 2 g sodium, do not over hydrate Remain active Monitor urine output Daily weights, if you gain more than 3 lb within 1 day or 5 lb in 1 week notify your primary care provider Take medications as prescribed Monitor blood pressures Take caution while standing, rising, or moving Change positions slowly taking a break between each position change If you standing feel dizzy sit back down and take a break Encouraged to continue with yearly vaccinations Return to the emergency department if he developed sudden shortness of breath, chest pain, nausea, vomiting, upset stomach or intractable diarrhea Return to the emergency department if you develop fever greater than 101.5 Follow-up with the primary care physician within 1-2 weeks Thank you for choosing [facility] for your healthcare needs Patient Instructions: Heart Failure (DC), Pain Management (DC) Patient Language: Sami Stand Alone Forms: General Discharge Information Follow-up/Referrals: PHYSICIAN NOT ON STAFF,NONSTAFF [Primary Care Provider] - 1 Week Discharge Medications: Continued spironolactone [Aldactone] 25 mg Tablet 12.5 mg PO DAILY bumetanide 0.5 mg tablet 0.5 mg PO BID sertraline 50 mg tablet 50 mg PO DAILY metoprolol tartrate 25 mg tablet 12.5 mg PO BID Jardiance 10 mg tablet 10 mg PO DAILY Entresto 24-26 mg tablet 1 tablet PO BID Date of admission: 10/03/24 09:07 Primary Care Provider: PHYSICIAN NOT ON STAFF,NONSTAFF Admitting Provider: Tsering Cervantes Attending physician on admission: Martina Hearn Condition: Stable Hospitalist MIPS Heart Failure (Exclusion) Patient has history of Heart Transplant or Left Ventricular Assistive Device?: No IF YES, STOP HERE Heart Failure (Qualifier) Patient has current or prior documentation of LVEF less than or equal to 40%, or mod/servere depressed LVSF?: No IF NO, STOP HERE
== END 2024-10-03 12:55 ==
LOC: ANHED 16:05 → ANH2MED 22:47
PROVIDERS: Admitting Provider Internal Medicine; Emergency Provider Physician Assistant; Visit Provider Student in an Organized Health Care Education/Training Program
DX: R07.9 Chest pain, unspecified (principal); I50.812 Chronic right heart failure; F81.9 Developmental disorder of scholastic skills, unspecified; N18.9 Chronic kidney disease, unspecified; E78.49 Other hyperlipidemia; F17.210 Nicotine dependence, cigarettes, uncomplicated; F41.8 Other specified anxiety disorders; F12.90 Cannabis use, unspecified, uncomplicated; Z59.00 Homelessness unspecified
CPT/HCPCS: 36415; 71045; 71275; 80053; 81003; 83690; 83880; 84484; 85025; 85610; 85730; 93005; 96372; 96374; 96375; 97161; 97165; 99285; A9270; G0378; G0379; J1650; J2270; J2405; Q9967